=== PATIENT | male | born 1995 | race Caucasian/White ===

== ENCOUNTER 2024-12-14 08:11 | Day surgery (SDC) | payer OTHER ==
[2024-12-14] MEDS ORDERED: NEURONTIN ONE (08:19)
[2024-12-14] MEDS ORDERED: Decadron 4 MG ONE (08:19)
[2024-12-14] MEDS ORDERED: celeBREX 100 MG ONE (08:19)
[2024-12-14] MEDS ORDERED: Lactated Ringers 1,000 ML IV ONE (08:19)
[2024-12-14] MEDS ORDERED: CEFAZOLIN 2 GM/100 ML NaCl 2 GM/100 ML IVPB IV ONE (08:19)
[2024-12-14] MEDS ORDERED: TYLENOL EXTRA STRENGTH 500 MG ONE (08:19)
[2024-12-14] MEDS: CEFAZOLIN 2 GM/100 ML NaCl 2 GM/100 ML IVPB IV SCH (08:26)
[2024-12-14] MEDS: Lactated Ringers 1,000 ML IV SCH (08:27)
[2024-12-14] MEDS: celeBREX 100 MG PO ONE (08:29)
[2024-12-14] MEDS: Decadron 4 MG PO ONE (08:29)
[2024-12-14] MEDS: TYLENOL EXTRA STRENGTH 500 MG PO ONE (08:29)
[2024-12-14] MEDS: NEURONTIN PO ONE (08:30)
[2024-12-14 08:33] VITALS: RESP 18
[2024-12-14 08:44] LABS: Hematocrit 44.4 % (40.1-51.0); Hemoglobin 15.5 g/dL (13.7-17.5); Mean Cell Volume 84.6 fL (79.0-92.2); Mean Corpuscular Hemoglobin 29.5 pg (25.7-32.2); Mean Corpuscular Hgb Concent. 34.9 g/dL (32.3-36.5); Mean Platelet Volume 10.2 fL (9.4-12.4); Platelet Count 235 x10^3/uL (163-337); Red Blood Count 5.25 x10^6/uL (4.63-6.08); Red Cell Distribution Width 12.7 % (11.6-14.4); White Blood Count 8.2 x10^3/uL (4.23-9.07)
[2024-12-14 09:09] LABS: ALBUMIN 4.6 g/dL (3.5-5.0); ANION GAP 15.5 MEQ/L (5-15); BILIRUBIN,TOTAL 0.6 mg/dL (0.2-1.3); Calcium 9.3 mg/dL (8.4-10.2); Creatinine 1 0.96 mg/dL (0.66-1.25); EST GLOMERULAR FILTRATION RATE 108.4 ML/MIN; Potassium 4.2 mmol/L (3.5-5.1); Total Protein 7.3 g/dL (6.3-8.2)
[2024-12-14] MEDS ORDERED: propofoL IV ONE (09:48)
[2024-12-14] MEDS ORDERED: SUBLIMAZE 100 MCG/2 ML ONE (09:48)
[2024-12-14] MEDS ORDERED: Versed 2 MG/2 ML Injection ONE (09:48)
[2024-12-14] MEDS ORDERED: Xylocaine-Mpf 2% 5 Ml Vial ONE (09:48)
[2024-12-14] MEDS ORDERED: Marcaine Mpf 0.5% Vial 30 Ml ONE (09:51)
[2024-12-14] MEDS ORDERED: EXPAREL 133 MG/10 ML VIAL IJ ONE (09:52)
[2024-12-14] MEDS ORDERED: Epinephrine Preservative Free 1 MG/ML ONE (12:26)
[2024-12-14] MEDS ORDERED: ROCURONIUM BROMIDE IV ONE (12:34)
[2024-12-14] MEDS ORDERED: Zofran 4 MG/2 ML VIAL ONE (13:04)
[2024-12-14] MEDS ORDERED: BRIDION 200MG/2ML IV ONE (14:02)
[2024-12-14] MEDS ORDERED: DEXMEDETOMIDINE 80 MCG/20ML-NS IV ONE (14:02)
[2024-12-14 15:19] VITALS: O2SAT 99
[2024-12-14 15:33] VITALS: BP 146/78; PULSE 85; TEMP 96.2
--- NOTE | 2024-12-14 16:13 | XRAY ---
Indication: Right ankle arthroscopy with synovectomy, removal accessory ossicle versus nonunion medial malleolus, repair versus reconstruction deltoid ligament, and possible posterior tibial tendon debridement/repair. Intraoperative fluoroscopy provided for 1 minute 36 seconds. Numerous digital spot and cine images submitted for interpretation demonstrates instrumentation medial malleolus. Correlate with intraoperative findings/report.
--- NOTE | 2024-12-14 16:56 | XRAY ---
1 minute 36 seconds of fluoroscopy used in surgery for a right ankle arthroscopy with synovectomy, removal accessory ossicle versus nonunion medial malleolus, repair versus reconstruction deltoid ligament, and possible posterior tibial tendon debridement/repair.
--- NOTE | 2024-12-15 13:05 | OP ---
SURGERY DATE/TIME: 12/14/2024 [id number] PREOPERATIVE DIAGNOSES: 1) Right ankle pain. 2) Right ankle synovitis. 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 POSTOPERATIVE DIAGNOSES: 1) Right ankle pain. 2) Right ankle synovitis. 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 PROCEDURES: 1) Ankle arthroscopy with complete synovectomy. 2) Removal of accessory bone medial malleolus. 3) Repair of superficial deltoid right ankle. SURGEON: Otis Hill DPM ASSISTANTS: BERTA Cuenca and Cristian Monterroso NP ANESTHESIA: General anesthesia with a preoperative popliteal and saphenous block. See anesthesia report for details. HEMOSTASIS: A thigh tourniquet set to 320 mmHg for a total of 55 total tourniquet minutes. ESTIMATED BLOOD LOSS: Approximately 5 mL. MATERIALS: A 1.45 JuggerKnot, 4-0 Monocryl, 3-0 nylon. INJECTABLES: See anesthesia report for details. INDICATIONS: The patient is a very pleasant 29-year-old male who was seen by a nurse practitioner prior to presenting to my service. Patient has significant pain at the medial aspect of his ankle and it does seemingly correlate with an accessory ossicle at the medial aspect of the patient's medial malleolus. From that standpoint, an MRI was obtained demonstrating some inflammation surrounding this site as well as some tenosynovitis surrounding the posterior tibial tendon. In regard to this, there was some synovitis that was identified on clinical exam within the right ankle joint. Given this criteria, options were discussed with the patient and the plan was made. Patient was made aware of all risks, complications, and benefits of surgical intervention, including, but not limited to, infection, hematoma, seroma, possibility of delayed wound healing, non-wound healing, and possible need for further surgical intervention at a later date. No guarantees were provided as to the outcome of surgical intervention. Plenty of time was allowed for the patient to ask questions, which were answered to his apparent satisfaction. It is at this time we decided to proceed. DESCRIPTION OF PROCEDURE AND FINDINGS: Patient was brought into the PACU prior to the procedure and provided a popliteal and saphenous block. See anesthesia report for details. Following this, patient was then brought into the operating room and placed on the operating room table in the supine position. General anesthesia was administered until the patient was adequately sedated. A well-padded thigh tourniquet was applied which was set to 320 mmHg. The right lower extremity was prepped and draped in the typical sterile fashion and lowered onto the surgical field at this time. The medial malleolus, lateral malleolus and the palpable dell at the anterior aspect of the talar body was palpated with lines correlating the sites. Lines were drawn between these sites and the anteromedial portal was established. Once the anteromedial portal was established, a 50 mL syringe with an 18-gauge needle with lactated ringer's was utilized to insufflate the joint. Once the joint was insufflated, a stab incision was made at the level of the skin utilizing an 11 blade. This was carried down to the level of the anterior capsule of the ankle joint where a blunt curved mini was utilized to puncture the site, then an obturator with trocar was then introduced. The obturator was then removed. A 4.0 mm x 30-degree camera was then introduced with inspection of the joint. 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 At this time, decision was made to establish an anterolateral portal where 3.4-mm shaver was utilized to perform the extensive synovectomy of both the medial and lateral gutter, anterior portion of the capsule, as well as the anterior tibial delamination site. From that standpoint, the scope was then withdrawn and put into the opposite portal site for better inspection and cleaning of the joint surfaces. From that standpoint, the scope portion of the procedure was done. An Esmarch was utilized to exsanguinate the leg and the tourniquet was inflated to 320 mmHg at this time. A linear incision was made from the proximal aspect of the medial malleolus and curvilinear to approximately the navicular tuberosity. From that standpoint, the incision was deepened, being careful not to damage any neurovascular structures along the way. Any neurovascular structures that were encountered were either Bovied or hand tied. From that standpoint, the medial malleolar accessory ossicle was identified. A [place] was utilized to separate these two bones and then careful dissection surrounding this we were able to free the bone from its soft tissue attachments. The deltoid ligament was stressed at this point, demonstrating some gaping of the ankle and decision was made at this time to repair the deltoid ligament. A 1.45 JuggerKnot was introduced into the medial malleolus making sure not to damage the talar body or violate the cartilage. From that standpoint, a 1.45 JuggerKnot was then secured and then utilized to repair the superficial and a portion of the deep deltoid. Stress views were once again taken demonstrating significant improvement in the deltoid insufficiency. Copious amounts of sterile saline were utilized to flush the surgical site. 4-0 Monocryl was utilized to coapt the subcutaneous edges of the skin and then 3-0 nylon was utilized in a horizontal mattress type fashion to coapt the skin edges in an everted type fashion. Following this, a dressing consisting of Betadine, Adaptic, 4 x 4, Kerlix, ABD and a well-padded posterior splint with sugar tong was applied to the patient's right lower extremity with the foot orthogonal relative to the longitudinal axis of the leg. Patient was then reversed from anesthesia and returned to the postoperative anesthesia care unit with vital signs stable and vascular status intact. Patient handled the anesthesia as well as the procedure without significant complication. Postoperative orders as indicated in the patient's discharge chart.
== END 2024-12-14 15:35 | disposition home or self-care (01) ==
LOC: SDC 08:11
PROVIDERS: ATTEND Podiatrist Foot & Ankle Surgery
DX: M61.571 Other ossification of muscle, right ankle and foot (principal); M25.571 Pain in right ankle and joints of right foot; M65.871 Other synovitis and tenosynovitis, right ankle and foot; S93.421A Sprain of deltoid ligament of right ankle, initial encounter
CPT/HCPCS: 36415; 73610; 76000; 76937; 80053; 85027; C1713; J0171; J0666; J0690; J2250; J2405; J2704; J3010; A9270-GY